=== PATIENT | female | born 1955 | race Caucasian/White ===

== ENCOUNTER 2019-08-29 10:07 | Outpatient (CLI) | payer OTHER ==
[~2019-08-29 10:07] MED LIST: [UNRECOGNIZED DRUG - OTHER]
== END 2019-08-29 10:14 | disposition home or self-care (01) ==
LOC: SONOGRAMA 10:07
DX: E03.8 Other specified hypothyroidism (principal); E04.2 Nontoxic multinodular goiter

== ENCOUNTER 2019-09-08 08:49 | Outpatient (CLI) | payer OTHER | END 2019-09-08 08:50 | disposition home or self-care (01) | LOC: TOM 08:49 | DX: E04.2 Nontoxic multinodular goiter (principal); R59.9 Enlarged lymph nodes, unspecified | CPT/HCPCS: 70491; Q9965 ==

== ENCOUNTER 2019-09-10 07:23 | Outpatient (CLI) | payer OTHER ==
[~2019-09-10] VITALS: Ht 162.6 cm; Wt 87.5 kg
[~2019-09-10 07:23] MED LIST changes: -CEFUROXIME500 MG PO; -FLONASE16 GM NASAL; -OMEPRAZOLE40 MG PO; -PEPCID40 MG PO
[2019-09-10] MEDS ORDERED: PEPCID40 MG PO (09:58)
[2019-09-10] MEDS ORDERED: OMEPRAZOLE40 MG PO (09:58)
[2019-09-10] MEDS ORDERED: CEFUROXIME500 MG PO (09:58)
[2019-09-10] MEDS ORDERED: FLONASE16 GM NASAL (09:59)
== END 2019-09-10 08:15 | disposition home or self-care (01) ==
LOC: OFIC 805 07:23
DX: J32.0 Chronic maxillary sinusitis (principal); J34.2 Deviated nasal septum; J31.0 Chronic rhinitis; E04.2 Nontoxic multinodular goiter; R22.1 Localized swelling, mass and lump, neck; J37.0 Chronic laryngitis; K21.9 Gastro-esophageal reflux disease without esophagitis

== ENCOUNTER → 2019-09-10 | Outpatient (CLI) | payer OTHER ==
[~2019-09-10] MED LIST changes: +CEFUROXIME500 MG PO; +FLONASE16 GM NASAL; +OMEPRAZOLE40 MG PO; +PEPCID40 MG PO
== END | disposition home or self-care (01) ==
LOC: MRI 11:05
DX: C82.80 Other types of follicular lymphoma, unspecified site (principal)
CPT/HCPCS: 70543; 72157; A9575

== ENCOUNTER 2019-09-11 07:41 | Outpatient (CLI) | payer OTHER ==
[~2019-09-11 07:41] MED LIST changes: +CEFUROXIME500 MG PO; +FLONASE16 GM NASAL; +OMEPRAZOLE40 MG PO; +PEPCID40 MG PO
== END 2019-09-11 07:44 | disposition home or self-care (01) ==
LOC: SONOGRAMA 07:41
DX: E04.1 Nontoxic single thyroid nodule (principal)

== ENCOUNTER 2019-09-25 10:02 | Outpatient (CLI) | payer OTHER | END 2019-09-25 15:00 | disposition home or self-care (01) | LOC: RX STUDY 10:02 | DX: J01.00 Acute maxillary sinusitis, unspecified (principal); R13.19 Other dysphagia ==

== ENCOUNTER 2019-10-01 09:56 | Outpatient (CLI) | payer OTHER ==
[~2019-10-01] VITALS: Ht 152.4 cm; Wt 86.2 kg
== END 2019-10-01 13:03 | disposition home or self-care (01) ==
LOC: OFIC 805 09:56
DX: J32.0 Chronic maxillary sinusitis (principal); J34.2 Deviated nasal septum; J31.0 Chronic rhinitis; E04.2 Nontoxic multinodular goiter; R22.1 Localized swelling, mass and lump, neck; R22.2 Localized swelling, mass and lump, trunk; J37.0 Chronic laryngitis; K21.9 Gastro-esophageal reflux disease without esophagitis; J34.3 Hypertrophy of nasal turbinates

== ENCOUNTER → 2019-11-03 | Outpatient (CLI) | payer OTHER | END | disposition home or self-care (01) | LOC: RAD 09:39 | DX: N30.00 Acute cystitis without hematuria (principal) ==

== ENCOUNTER 2019-11-06 08:44 | Outpatient (CLI) | payer OTHER | END 2019-11-06 14:36 | disposition home or self-care (01) | LOC: NUCLEAR 08:44 | DX: C81.78 Other Hodgkin lymphoma, lymph nodes of multiple sites (principal); C82.02 Follicular lymphoma grade I, intrathoracic lymph nodes | CPT/HCPCS: 78815; A9552 ==

== ENCOUNTER 2019-11-28 12:22 | Outpatient (CLI) | payer OTHER | END 2019-11-28 12:50 | disposition home or self-care (01) | LOC: NUCLEAR 12:22 | DX: C82.12 Follicular lymphoma grade II, intrathoracic lymph nodes (principal) | CPT/HCPCS: 78472; 78496; A9560 ==

== ENCOUNTER 2019-12-09 10:01 | Outpatient (CLI) | payer OTHER | END 2019-12-09 11:00 | disposition home or self-care (01) | LOC: MAMO-SONO 10:01 | DX: Z12.31 Encounter for screening mammogram for malignant neoplasm of breast (principal); N60.11 Diffuse cystic mastopathy of right breast; N60.12 Diffuse cystic mastopathy of left breast ==

== ENCOUNTER 2019-12-09 11:02 | Outpatient (CLI) | payer OTHER | END 2019-12-09 11:17 | disposition home or self-care (01) | LOC: NUCLEAR 11:02 | DX: M81.0 Age-related osteoporosis without current pathological fracture (principal) ==

== ENCOUNTER 2019-12-11 15:12 | Outpatient (CLI) | payer OTHER | END 2019-12-11 15:17 | disposition home or self-care (01) | LOC: MAMO-SONO 15:12 | DX: R92.8 Other abnormal and inconclusive findings on diagnostic imaging of breast (principal) ==

== ENCOUNTER 2020-01-23 11:57 | Outpatient (CLI) | payer OTHER | END 2020-01-23 15:32 | disposition home or self-care (01) | LOC: TOM 11:57 | DX: C82.12 Follicular lymphoma grade II, intrathoracic lymph nodes (principal) | CPT/HCPCS: 71270; Q9965 ==

== ENCOUNTER 2020-03-16 14:04 | Outpatient (CLI) | payer OTHER | END 2020-03-16 14:08 | disposition home or self-care (01) | LOC: LAB 14:04 | DX: N30.00 Acute cystitis without hematuria (principal) ==

== ENCOUNTER 2020-04-26 09:12 | Outpatient (CLI) | payer OTHER | END 2020-04-26 09:20 | disposition home or self-care (01) | LOC: NUCLEAR 09:12 | PROVIDERS: ATTEND Internal Medicine Hematology & Oncology | DX: C82.12 Follicular lymphoma grade II, intrathoracic lymph nodes (principal) | CPT/HCPCS: 78815; A9552 ==

== ENCOUNTER 2020-10-23 08:31 | Outpatient (CLI) | payer OTHER | END 2020-10-23 08:57 | disposition home or self-care (01) | LOC: LAB 08:31 | PROVIDERS: ATTEND Internal Medicine Hematology & Oncology | DX: C82.12 Follicular lymphoma grade II, intrathoracic lymph nodes (principal) ==

== ENCOUNTER 2020-10-25 08:17 | Outpatient (CLI) | payer OTHER | END 2020-10-25 08:50 | disposition home or self-care (01) | LOC: TOM 08:17 | PROVIDERS: ATTEND Internal Medicine Hematology & Oncology | DX: D35.01 Benign neoplasm of right adrenal gland (principal); Q51.818 Other congenital malformations of uterus; C82.12 Follicular lymphoma grade II, intrathoracic lymph nodes | CPT/HCPCS: 71260; 74177; Q9965 ==

== ENCOUNTER → 2020-11-08 11:01 | Outpatient (CLI) | payer OTHER | END | disposition home or self-care (01) | LOC: LAB 11:01 | PROVIDERS: ATTEND Student in an Organized Health Care Education/Training Program | DX: I10 Essential (primary) hypertension (principal); B96.1 Klebsiella pneumoniae [K. pneumoniae] as the cause of diseases classified elsewhere; E78.49 Other hyperlipidemia; E03.8 Other specified hypothyroidism; N30.00 Acute cystitis without hematuria; E83.51 Hypocalcemia; Z12.11 Encounter for screening for malignant neoplasm of colon; E06.3 Autoimmune thyroiditis; N95.8 Other specified menopausal and perimenopausal disorders; R97.8 Other abnormal tumor markers; Z11.3 Encounter for screening for infections with a predominantly sexual mode of transmission; A60.04 Herpesviral vulvovaginitis; R74.8 Abnormal levels of other serum enzymes; E28.2 Polycystic ovarian syndrome; E22.1 Hyperprolactinemia ==

== ENCOUNTER 2020-11-11 11:09 | Outpatient (CLI) | payer OTHER | END 2020-11-11 12:52 | disposition home or self-care (01) | LOC: SONOGRAMA 11:09 | PROVIDERS: ATTEND Specialist | DX: D25.2 Subserosal leiomyoma of uterus (principal) ==

== ENCOUNTER 2021-01-11 14:29 | Outpatient (CLI) | payer OTHER | END 2021-01-11 14:31 | disposition home or self-care (01) | LOC: LAB 14:29 | PROVIDERS: ATTEND Radiology Diagnostic Radiology | DX: N20.0 Calculus of kidney (principal) ==

== ENCOUNTER 2021-01-13 08:18 | Outpatient (CLI) | payer OTHER | END 2021-01-13 08:24 | disposition home or self-care (01) | LOC: TOM 08:18 | PROVIDERS: ATTEND Internal Medicine Hematology & Oncology | DX: G93.89 Other specified disorders of brain (principal); J32.8 Other chronic sinusitis; C82.12 Follicular lymphoma grade II, intrathoracic lymph nodes | CPT/HCPCS: 70450; 70492; Q9965 ==

== ENCOUNTER 2021-05-24 07:07 | Outpatient (CLI) | payer OTHER | END 2021-05-24 07:16 | disposition home or self-care (01) | LOC: TOM 07:07 | PROVIDERS: ATTEND Internal Medicine Hematology & Oncology | DX: C82.12 Follicular lymphoma grade II, intrathoracic lymph nodes (principal); Q51.818 Other congenital malformations of uterus | CPT/HCPCS: 71260; 74177; Q9965 ==

== ENCOUNTER → 2021-05-30 11:24 | Outpatient (CLI) | payer OTHER | END | disposition home or self-care (01) | LOC: MRI 11:24 | PROVIDERS: ATTEND Internal Medicine Hematology & Oncology | DX: C82.12 Follicular lymphoma grade II, intrathoracic lymph nodes (principal) | CPT/HCPCS: 72148 ==

== ENCOUNTER 2021-06-01 09:40 | Outpatient (CLI) | payer OTHER | END 2021-06-01 09:44 | disposition home or self-care (01) | LOC: NUCLEAR 09:40 | PROVIDERS: ATTEND Internal Medicine Hematology & Oncology | DX: C82.12 Follicular lymphoma grade II, intrathoracic lymph nodes (principal); I82.491 Acute embolism and thrombosis of other specified deep vein of right lower extremity ==

== ENCOUNTER 2021-06-08 08:00 | Outpatient (CLI) | payer OTHER | END 2021-06-08 08:30 | disposition home or self-care (01) | LOC: PPH VACUNA 08:00 | DX: Z23 Encounter for immunization (principal) ==

== ENCOUNTER → 2021-10-24 10:04 | Outpatient (CLI) | payer OTHER | END | disposition home or self-care (01) | LOC: LAB 10:04 | PROVIDERS: ATTEND Internal Medicine Hematology & Oncology | DX: N30.00 Acute cystitis without hematuria (principal); C82.12 Follicular lymphoma grade II, intrathoracic lymph nodes ==

== ENCOUNTER 2021-10-25 07:25 | Outpatient (CLI) | payer OTHER | END 2021-10-25 07:28 | disposition home or self-care (01) | LOC: TOM 07:25 | PROVIDERS: ATTEND Internal Medicine Hematology & Oncology | DX: C82.12 Follicular lymphoma grade II, intrathoracic lymph nodes (principal) | CPT/HCPCS: 71260; 74177; Q9965 ==

== ENCOUNTER 2021-12-06 14:27 | Outpatient (CLI) | payer OTHER | END 2021-12-06 15:05 | disposition home or self-care (01) | LOC: RAD 14:27 | PROVIDERS: ATTEND Physical Medicine & Rehabilitation Pain Medicine | DX: M54.17 Radiculopathy, lumbosacral region (principal); M53.88 Other specified dorsopathies, sacral and sacrococcygeal region; M25.559 Pain in unspecified hip; M72.2 Plantar fascial fibromatosis ==

== ENCOUNTER 2022-01-23 08:00 | Outpatient (CLI) | payer OTHER | END 2022-01-23 08:30 | disposition home or self-care (01) | LOC: PPH VACUNA 08:00 | PROVIDERS: ATTEND Emergency Medicine Pediatric Emergency Medicine | DX: Z23 Encounter for immunization (principal) ==

== ENCOUNTER 2022-02-15 11:10 | Outpatient (CLI) | payer OTHER | END 2022-02-15 11:23 | disposition home or self-care (01) | LOC: RAD 11:10 | PROVIDERS: ATTEND Internal Medicine | DX: R51.9 Headache, unspecified (principal); M25.562 Pain in left knee | CPT/HCPCS: 70551 ==

== ENCOUNTER 2022-02-16 07:30 | Outpatient (CLI) | payer OTHER | END 2022-02-16 07:43 | disposition home or self-care (01) | LOC: LAB 07:30 | PROVIDERS: ATTEND Internal Medicine | DX: C82.52 Diffuse follicle center lymphoma, intrathoracic lymph nodes (principal); I10 Essential (primary) hypertension; Z13.1 Encounter for screening for diabetes mellitus; Z13.220 Encounter for screening for lipoid disorders; Z13.29 Encounter for screening for other suspected endocrine disorder ==

== ENCOUNTER → 2022-04-11 | Outpatient (CLI) | payer OTHER | END | disposition home or self-care (01) | LOC: NUCLEAR 12:47 | PROVIDERS: ATTEND Specialist | DX: M81.0 Age-related osteoporosis without current pathological fracture (principal); Z88.1 Allergy status to other antibiotic agents ==

== ENCOUNTER 2022-04-25 07:12 | Outpatient (CLI) | payer OTHER | END 2022-04-25 07:13 | disposition home or self-care (01) | LOC: LAB 07:12 | DX: C82.12 Follicular lymphoma grade II, intrathoracic lymph nodes (principal) ==

== ENCOUNTER → 2022-04-25 | Outpatient (CLI) | payer OTHER | END | disposition home or self-care (01) | LOC: TOM 07:42 | PROVIDERS: ATTEND Internal Medicine Hematology & Oncology | DX: C82.12 Follicular lymphoma grade II, intrathoracic lymph nodes (principal) | CPT/HCPCS: 71260; 74177; Q9965 ==

== ENCOUNTER 2022-07-05 10:17 | Outpatient (CLI) | payer OTHER | END 2022-07-05 10:27 | disposition home or self-care (01) | LOC: PPH VACUNA 10:17 | PROVIDERS: ATTEND Emergency Medicine Pediatric Emergency Medicine | DX: Z23 Encounter for immunization (principal) ==

== ENCOUNTER 2022-10-23 07:13 | Outpatient (CLI) | payer OTHER | END 2022-10-23 07:14 | disposition home or self-care (01) | LOC: LAB 07:13 | PROVIDERS: ATTEND Internal Medicine | DX: I25.9 Chronic ischemic heart disease, unspecified (principal); C82.52 Diffuse follicle center lymphoma, intrathoracic lymph nodes; I10 Essential (primary) hypertension; D64.9 Anemia, unspecified; E78.9 Disorder of lipoprotein metabolism, unspecified ==

== ENCOUNTER 2022-10-24 07:14 | Outpatient (CLI) | payer OTHER | END 2022-10-24 07:17 | disposition home or self-care (01) | LOC: TOM 07:14 | PROVIDERS: ATTEND Internal Medicine Hematology & Oncology | DX: C82.12 Follicular lymphoma grade II, intrathoracic lymph nodes (principal) | CPT/HCPCS: 71260; 74177; Q9965 ==

== ENCOUNTER 2022-10-24 08:13 | Outpatient (CLI) | payer OTHER | END 2022-10-24 23:00 | disposition home or self-care (01) | LOC: LAB 08:13 | PROVIDERS: ATTEND Internal Medicine | DX: R73.09 Other abnormal glucose (principal) ==

== ENCOUNTER 2022-10-31 11:35 | Outpatient (CLI) | payer OTHER | END 2022-10-31 11:47 | disposition home or self-care (01) | LOC: RAD 11:35 | PROVIDERS: ATTEND Internal Medicine | DX: E04.1 Nontoxic single thyroid nodule (principal); R51.9 Headache, unspecified | CPT/HCPCS: 70551 ==

== ENCOUNTER 2022-11-27 08:28 | Outpatient (CLI) | payer OTHER | END 2022-11-27 08:30 | disposition home or self-care (01) | LOC: NUCLEAR 08:28 | PROVIDERS: ATTEND Internal Medicine | DX: I73.9 Peripheral vascular disease, unspecified (principal) ==

== ENCOUNTER 2022-12-20 08:31 | Outpatient (CLI) | payer OTHER | END 2022-12-20 08:37 | disposition home or self-care (01) | LOC: NUCLEAR 08:31 | PROVIDERS: ATTEND Psychiatry & Neurology Clinical Neurophysiology | DX: I82.439 Acute embolism and thrombosis of unspecified popliteal vein (principal); C85.90 Non-Hodgkin lymphoma, unspecified, unspecified site ==

== ENCOUNTER 2023-01-02 14:06 | Outpatient (CLI) | payer OTHER | END 2023-01-02 14:10 | disposition home or self-care (01) | LOC: LAB 14:06 | DX: C82.12 Follicular lymphoma grade II, intrathoracic lymph nodes (principal); D69.9 Hemorrhagic condition, unspecified ==

== ENCOUNTER → 2023-01-24 12:33 | Outpatient (CLI) | payer OTHER | END | disposition home or self-care (01) | LOC: LAB 12:33 | PROVIDERS: ATTEND Internal Medicine | DX: Z03.818 Encounter for observation for suspected exposure to other biological agents ruled out (principal) ==

== ENCOUNTER 2023-04-04 08:35 | Outpatient (CLI) | payer OTHER | END 2023-04-04 08:38 | disposition home or self-care (01) | LOC: LAB 08:35 | PROVIDERS: ATTEND Internal Medicine | DX: Z20.822 Contact with and (suspected) exposure to COVID-19 (principal); J11.1 Influenza due to unidentified influenza virus with other respiratory manifestations; N39.0 Urinary tract infection, site not specified ==

== ENCOUNTER 2023-04-27 06:56 | Outpatient (CLI) | payer OTHER | END 2023-04-27 06:57 | disposition home or self-care (01) | LOC: LAB 06:56 | PROVIDERS: ATTEND Internal Medicine | DX: C82.12 Follicular lymphoma grade II, intrathoracic lymph nodes (principal); K22.0 Achalasia of cardia; M35.9 Systemic involvement of connective tissue, unspecified ==

== ENCOUNTER 2023-05-01 07:15 | Outpatient (CLI) | payer OTHER | END 2023-05-01 14:26 | disposition home or self-care (01) | LOC: TOM 07:15 | PROVIDERS: ATTEND Internal Medicine Hematology & Oncology | DX: C82.12 Follicular lymphoma grade II, intrathoracic lymph nodes (principal) | CPT/HCPCS: 71260; 74177; Q9965 ==

== ENCOUNTER 2023-05-25 08:18 | Outpatient (CLI) | payer OTHER | END 2023-05-25 08:25 | disposition home or self-care (01) | LOC: PPH VACUNA 08:18 | PROVIDERS: ATTEND Emergency Medicine Pediatric Emergency Medicine | DX: Z23 Encounter for immunization (principal) ==

== ENCOUNTER 2023-10-02 12:48 | Outpatient (CLI) | payer OTHER | END 2023-10-02 12:55 | disposition home or self-care (01) | LOC: RAD 12:48 | PROVIDERS: ATTEND Internal Medicine | DX: S40.022A Contusion of left upper arm, initial encounter (principal) ==

== ENCOUNTER 2023-10-02 13:30 | Outpatient (CLI) | payer OTHER ==
[2023-10-02 14:41] LABS: HEMATOCRIT 39.3 % (36.0-45.00); HEMOGLOBIN 13.5 g/dL (12.0-15.00); MEAN CELL VOLUME 90.6 fL (80.00-100.00); MEAN CORPUSCULAR HEMOGLOBIN 31.2 pg (27.00-32.0); MEAN CORPUSCULAR HGB CONC 34.5 g/dl (32.0-36.0); PLATELET COUNT 205 K/uL (150-450); RED BLOOD COUNT 4.34 M/uL (4.00-6.00); RED CELL DISTRIBUTION WIDTH 14.1 % (11.5-14.5)
[2023-10-02 14:50] LABS: ERYTHROCYTE SEDIMENTATION RATE 8 mm/hr
[2023-10-02 15:13] LABS: ALBUMIN 3.8 gm/dL (3.4-5.0); BILIRUBIN TOTAL 0.39 mg/dL (0.3-1.2); CHOL HDL RATIO 3.7 (0-5.0); CREATININE SERUM 0.74 mg/dL (0.55-1.02); GFR 77.81; POTASSIUM 4.34 mEq/L (3.5-5.1); TOTAL PROTEIN 6.8 gm/dL (6.4-8.2)
[2023-10-02 15:14] LABS: C-REACTIVE PROTEIN 0.88 MG/DL (0.00-0.29)
== END 2023-10-02 13:34 | disposition home or self-care (01) ==
LOC: LAB 13:30
PROVIDERS: ATTEND Internal Medicine
DX: I25.9 Chronic ischemic heart disease, unspecified (principal); C82.52 Diffuse follicle center lymphoma, intrathoracic lymph nodes; I10 Essential (primary) hypertension; E78.9 Disorder of lipoprotein metabolism, unspecified; E55.9 Vitamin D deficiency, unspecified

== ENCOUNTER 2023-10-30 15:10 | Outpatient (CLI) | payer OTHER ==
[2023-10-30 15:51] LABS: HEMATOCRIT 41.1 % (36.0-45.00); MEAN CELL VOLUME 91.6 fL (80.00-100.00); MEAN CORPUSCULAR HEMOGLOBIN 31.1 pg (27.00-32.0); MEAN CORPUSCULAR HGB CONC 33.9 g/dl (32.0-36.0); PLATELET COUNT 200 K/uL (150-450); RED BLOOD COUNT 4.49 M/uL (4.00-6.00); RED CELL DISTRIBUTION WIDTH 14.4 % (11.5-14.5)
[2023-10-30 16:17] LABS: ALBUMIN 4.1 gm/dL (3.4-5.0); BILIRUBIN TOTAL 0.7 mg/dL (0.3-1.2); CALCIUM 9.6 mg/dL (8.5-10.1); CREATININE SERUM 0.87 mg/dL (0.55-1.02); GFR 64.56; GLOBULINA 2.9 G/DL (2.4-3.5); POTASSIUM 4.49 mEq/L (3.5-5.1)
== END 2023-10-30 15:16 | disposition home or self-care (01) ==
LOC: LAB 15:10
DX: C82.12 Follicular lymphoma grade II, intrathoracic lymph nodes (principal)

== ENCOUNTER 2023-11-01 07:07 | Outpatient (CLI) | payer OTHER | END 2023-11-01 07:09 | disposition home or self-care (01) | LOC: TOM 07:07 | DX: C82.12 Follicular lymphoma grade II, intrathoracic lymph nodes (principal); Z88.1 Allergy status to other antibiotic agents | CPT/HCPCS: 71260; 74177; Q9965 ==

== ENCOUNTER 2023-11-22 09:07 | Outpatient (CLI) | payer OTHER | END 2023-11-22 09:19 | disposition home or self-care (01) | LOC: MRI 09:07 | PROVIDERS: ATTEND Internal Medicine | DX: R51.9 Headache, unspecified (principal); C82.52 Diffuse follicle center lymphoma, intrathoracic lymph nodes | CPT/HCPCS: 70553; 73221; Q9965; 70552 ==

== ENCOUNTER → 2023-11-23 08:52 | Outpatient (CLI) | payer OTHER | END | disposition home or self-care (01) | LOC: SONOGRAMA 08:52 | PROVIDERS: ATTEND Specialist | DX: N95.0 Postmenopausal bleeding (principal) ==

== ENCOUNTER 2024-01-14 11:25 | Outpatient (CLI) | payer OTHER ==
[2024-01-14 14:26] LABS: PH,URINE 5.5 (5.0-8.0); URINE APPEARANCE Error; URINE BILIRRUBIN Negative (NEGATIVE); URINE BLOOD Small; URINE COLOR Yellow; URINE GLUCOSE Negative (NEGATIVE); URINE LEUKOCYTE Moderate; URINE NITRATE Negative; URINE PROTEIN Negative (NEGATIVE); URINE UROBILINOGEN 0.2 E.U./dl
[2024-01-14 14:30] LABS: URINE BACTERIA 6445.6 uL (0.0-1933); URINE EPITHELIAL CELLS 2.3 uL (0.0-38.8); URINE RBC 10.7 uL (0.0-20.8); URINE WBC 1084.5 uL (0.0-23.2)
== END 2024-01-14 12:12 | disposition home or self-care (01) ==
LOC: LAB 11:25
PROVIDERS: ATTEND Specialist
DX: E03.8 Other specified hypothyroidism (principal); N95.1 Menopausal and female climacteric states

== ENCOUNTER 2024-01-30 11:58 | Outpatient (CLI) | payer OTHER ==
[2024-01-30 14:23] LABS: HEMATOCRIT 40.1 % (36.0-45.00); HEMOGLOBIN 13.7 g/dL (12.0-15.00); MEAN CELL VOLUME 92.9 fL (80.00-100.00); MEAN CORPUSCULAR HEMOGLOBIN 31.8 pg (27.00-32.0); MEAN CORPUSCULAR HGB CONC 34.2 g/dl (32.0-36.0); PLATELET COUNT 197 K/uL (150-450); RED BLOOD COUNT 4.31 M/uL (4.00-6.00); RED CELL DISTRIBUTION WIDTH 14.3 % (11.5-14.5)
[2024-01-30 14:34] LABS: ERYTHROCYTE SEDIMENTATION RATE 7 mm/hr
[2024-01-30 15:26] LABS: ALBUMIN 3.8 gm/dL (3.4-5.0); BILIRUBIN TOTAL 0.71 mg/dL (0.3-1.2); CALCIUM 9.2 mg/dL (8.5-10.1); CREATININE SERUM 0.85 mg/dL (0.55-1.02); FREE TRIODOTIRONINE 2.5 pg/ml (2.18-3.98); GFR 66.12; POTASSIUM 4.35 mEq/L (3.5-5.1); T4 TOTAL 8.22 UG/DL (4.8-13.9); TOTAL PROTEIN 6.8 gm/dL (6.4-8.2); TSH 1.45 uIU/mL (0.358-3.74)
[2024-01-30 15:27] LABS: URINE APPEARANCE Clear; URINE BILIRRUBIN Negative (NEGATIVE); URINE BLOOD Negative; URINE COLOR Yellow; URINE GLUCOSE Negative (NEGATIVE); URINE LEUKOCYTE Negative; URINE NITRATE Negative; URINE PROTEIN Negative (NEGATIVE); URINE UROBILINOGEN 0.2 E.U./dl
[2024-01-30 15:31] LABS: URINE BACTERIA 20.1 uL (0.0-1933); URINE EPITHELIAL CELLS 16.5 uL (0.0-38.8); URINE RBC 4.8 uL (0.0-20.8); URINE WBC 19.9 uL (0.0-23.2)
[2024-01-30 15:31] LABS: C-REACTIVE PROTEIN 0.63 MG/DL (0.00-0.29)
== END 2024-01-30 11:59 | disposition home or self-care (01) ==
LOC: LAB 11:58
PROVIDERS: ATTEND Internal Medicine
DX: C82.52 Diffuse follicle center lymphoma, intrathoracic lymph nodes (principal); I25.9 Chronic ischemic heart disease, unspecified; E55.9 Vitamin D deficiency, unspecified; I10 Essential (primary) hypertension; R73.9 Hyperglycemia, unspecified; K76.0 Fatty (change of) liver, not elsewhere classified; Z12.10 Encounter for screening for malignant neoplasm of intestinal tract, unspecified

== ENCOUNTER → 2024-01-31 09:54 | Outpatient (CLI) | payer OTHER ==
[2024-01-31 10:51] LABS: ob NEGATIVE (NEGATIVE)
== END | disposition home or self-care (01) ==
LOC: LAB 09:54
PROVIDERS: ATTEND Internal Medicine
DX: C82.52 Diffuse follicle center lymphoma, intrathoracic lymph nodes (principal); I25.9 Chronic ischemic heart disease, unspecified; E55.9 Vitamin D deficiency, unspecified; I10 Essential (primary) hypertension; R73.9 Hyperglycemia, unspecified; K76.0 Fatty (change of) liver, not elsewhere classified; Z12.10 Encounter for screening for malignant neoplasm of intestinal tract, unspecified; E03.9 Hypothyroidism, unspecified

== ENCOUNTER 2024-02-07 11:37 | Outpatient (CLI) | payer OTHER ==
[2024-02-07 13:52] LABS: INR 1.02; PARTIAL THROMBOPLASTIN TIME 28.6 SECONDS (22.0-34.0); PROTHROMBIN TIME 10.7 SECONDS (9.0-11.5)
== END 2024-02-07 11:38 | disposition home or self-care (01) ==
LOC: RAD 11:37
PROVIDERS: ATTEND Internal Medicine
DX: D65 Disseminated intravascular coagulation [defibrination syndrome] (principal); Z01.818 Encounter for other preprocedural examination; I10 Essential (primary) hypertension; Z13.6 Encounter for screening for cardiovascular disorders; N95.1 Menopausal and female climacteric states

== ENCOUNTER → 2024-04-25 06:28 | Outpatient (CLI) | payer OTHER ==
[~2024-04-25 06:28] MED LIST changes: +CHOLECALCIFEROL; +DYMISTA NASAL S23 GM; +ZESTRIL10 M1
[2024-04-25 07:49] LABS: HEMOGLOBIN 13.2 g/dL (12.0-15.00); MEAN CELL VOLUME 93.1 fL (80.00-100.00); MEAN CORPUSCULAR HEMOGLOBIN 31.5 pg (27.00-32.0); MEAN CORPUSCULAR HGB CONC 33.8 g/dl (32.0-36.0); PLATELET COUNT 209 K/uL (150-450); RED BLOOD COUNT 4.19 M/uL (4.00-6.00); RED CELL DISTRIBUTION WIDTH 13.9 % (11.5-14.5)
[2024-04-25 08:03] LABS: ERYTHROCYTE SEDIMENTATION RATE 7 mm/hr
[2024-04-25 08:28] LABS: ALBUMIN 3.6 gm/dL (3.4-5.0); BILIRUBIN TOTAL 0.25 mg/dL (0.3-1.2); CALCIUM 9.6 mg/dL (8.5-10.1); CHOL HDL RATIO 3.9 (0-5.0); CREATININE SERUM 0.73 mg/dL (0.55-1.02); FREE TRIODOTIRONINE 2.28 pg/ml (2.18-3.98); GFR 78.81; GLOBULINA 2.9 G/DL (2.4-3.5); POTASSIUM 5.02 mEq/L (3.5-5.1); T4 TOTAL 8.38 UG/DL (4.8-13.9); TOTAL PROTEIN 6.5 gm/dL (6.4-8.2); TSH 2.2 uIU/mL (0.358-3.74)
[2024-04-25 08:29] LABS: C-REACTIVE PROTEIN 0.68 MG/DL (0.00-0.29)
[2024-04-25 12:39] LABS: PH,URINE 7.5 (5.0-8.0); URINE APPEARANCE Clear; URINE BILIRRUBIN Negative (NEGATIVE); URINE BLOOD Negative; URINE COLOR Yellow; URINE GLUCOSE Negative (NEGATIVE); URINE LEUKOCYTE Negative; URINE NITRATE Negative; URINE PROTEIN Negative (NEGATIVE); URINE UROBILINOGEN 0.2 E.U./dl
[2024-04-25 12:40] LABS: URINE BACTERIA 17.6 uL (0.0-1933); URINE RBC 3.3 uL (0.0-20.8); URINE WBC 3.3 uL (0.0-23.2)
[2024-04-25 12:52] LABS: ob NEGATIVE (NEGATIVE)
== END | disposition home or self-care (01) ==
LOC: LAB 06:28
PROVIDERS: ATTEND Internal Medicine Hematology & Oncology
DX: C82.52 Diffuse follicle center lymphoma, intrathoracic lymph nodes (principal); C82.12 Follicular lymphoma grade II, intrathoracic lymph nodes; I25.9 Chronic ischemic heart disease, unspecified; E55.9 Vitamin D deficiency, unspecified; I10 Essential (primary) hypertension; R73.9 Hyperglycemia, unspecified; K76.0 Fatty (change of) liver, not elsewhere classified; Z12.10 Encounter for screening for malignant neoplasm of intestinal tract, unspecified; E03.9 Hypothyroidism, unspecified

== ENCOUNTER 2024-04-28 07:05 | Outpatient (CLI) | payer OTHER | END 2024-04-28 07:13 | disposition home or self-care (01) | LOC: TOM 07:05 | PROVIDERS: ATTEND Internal Medicine Hematology & Oncology | DX: C82.12 Follicular lymphoma grade II, intrathoracic lymph nodes (principal) | CPT/HCPCS: 71260; 74177; Q9965 ==

== ENCOUNTER 2024-05-03 23:07 | Emergency (ER) | payer OTHER ==
[~2024-05-03] VITALS: Ht 162.6 cm; Wt 87.1 kg
[2024-05-04] MEDS ORDERED: FAMOtidine 10 MG/ML (4ML VIAL) IV PUSH STA (00:45)
[2024-05-04] MEDS ORDERED: METOCLOPRAMIDE HCL 5 MG/ML VIAL IM STA (00:45)
[2024-05-04 01:18] LABS: HEMATOCRIT 40.5 % (36.0-45.00); MEAN CELL VOLUME 91.3 fL (80.00-100.00); MEAN CORPUSCULAR HEMOGLOBIN 31.6 pg (27.00-32.0); MEAN CORPUSCULAR HGB CONC 34.6 g/dl (32.0-36.0); PLATELET COUNT 194 K/uL (150-450); RED BLOOD COUNT 4.44 M/uL (4.00-6.00)
== END 2024-05-04 03:06 | disposition home or self-care (01) ==
LOC: ER 23:08
DX: U07.1 COVID-19 (principal); R11.10 Vomiting, unspecified; K29.70 Gastritis, unspecified, without bleeding; Z88.8 Allergy status to other drugs, medicaments and biological substances
CPT/HCPCS: 36415; 96365; 96372; 99282; J0696; J3490

== ENCOUNTER → 2024-05-10 08:24 | Outpatient (CLI) | payer OTHER ==
[2024-05-10 09:05] LABS: HEMATOCRIT 40.2 % (36.0-45.00); HEMOGLOBIN 13.9 g/dL (12.0-15.00); MEAN CELL VOLUME 92.3 fL (80.00-100.00); MEAN CORPUSCULAR HGB CONC 34.7 g/dl (32.0-36.0); PLATELET COUNT 214 K/uL (150-450); RED BLOOD COUNT 4.35 M/uL (4.00-6.00); RED CELL DISTRIBUTION WIDTH 13.5 % (11.5-14.5)
== END | disposition home or self-care (01) ==
LOC: LAB 08:24
PROVIDERS: ATTEND Internal Medicine
DX: U07.1 COVID-19 (principal)

== ENCOUNTER → 2024-05-14 12:23 | Outpatient (CLI) | payer OTHER ==
[2024-05-14 13:45] LABS: HEMATOCRIT 39.2 % (36.0-45.00); HEMOGLOBIN 13.6 g/dL (12.0-15.00); MEAN CELL VOLUME 92.5 fL (80.00-100.00); MEAN CORPUSCULAR HEMOGLOBIN 32.2 pg (27.00-32.0); MEAN CORPUSCULAR HGB CONC 34.8 g/dl (32.0-36.0); PLATELET COUNT 238 K/uL (150-450); RED BLOOD COUNT 4.24 M/uL (4.00-6.00); RED CELL DISTRIBUTION WIDTH 13.5 % (11.5-14.5)
[2024-05-14 14:47] LABS: MYCOPLASMA PNEUMONIAE IGM NON REACTIVE (NO REACTIVE)
== END | disposition home or self-care (01) ==
LOC: LAB 12:23
PROVIDERS: ATTEND Internal Medicine
DX: J11.1 Influenza due to unidentified influenza virus with other respiratory manifestations (principal); R50.9 Fever, unspecified; Z20.822 Contact with and (suspected) exposure to COVID-19; U07.1 COVID-19

== ENCOUNTER 2024-05-24 09:11 | Outpatient (CLI) | payer OTHER ==
[2024-05-24 11:06] LABS: MYCOPLASMA PNEUMONIAE IGM NON REACTIVE (NO REACTIVE)
== END 2024-05-24 09:14 | disposition home or self-care (01) ==
LOC: LAB 09:11
PROVIDERS: ATTEND Internal Medicine
DX: J10.1 Influenza due to other identified influenza virus with other respiratory manifestations (principal); A43.9 Nocardiosis, unspecified; Z20.828 Contact with and (suspected) exposure to other viral communicable diseases

== ENCOUNTER 2024-06-09 13:37 | Outpatient (CLI) | payer OTHER | END 2024-06-09 13:47 | disposition home or self-care (01) | LOC: LAB 13:37 | PROVIDERS: ATTEND Internal Medicine | DX: Z20.822 Contact with and (suspected) exposure to COVID-19 (principal) ==

== ENCOUNTER 2024-06-12 09:32 | Outpatient (CLI) | payer OTHER | END 2024-06-12 09:41 | disposition home or self-care (01) | LOC: LAB 09:32 | PROVIDERS: ATTEND Internal Medicine | DX: J06.9 Acute upper respiratory infection, unspecified (principal) ==

== ENCOUNTER 2024-10-14 07:07 | Outpatient (CLI) | payer OTHER ==
[2024-10-14 07:53] LABS: HEMATOCRIT 39.3 % (36.0-45.00); HEMOGLOBIN 13.5 g/dL (12.0-15.00); MEAN CELL VOLUME 90.5 fL (80.00-100.00); MEAN CORPUSCULAR HGB CONC 34.2 g/dl (32.0-36.0); PLATELET COUNT 193 K/uL (150-450); RED BLOOD COUNT 4.35 M/uL (4.00-6.00); RED CELL DISTRIBUTION WIDTH 14.6 % (11.5-14.5)
[2024-10-14 08:56] LABS: ALBUMIN 3.6 gm/dL (3.4-5.0); BILIRUBIN TOTAL 0.66 mg/dL (0.3-1.2); CREATININE SERUM 0.83 mg/dL (0.55-1.02); GFR 67.96; POTASSIUM 4.6 mEq/L (3.5-5.1); TOTAL PROTEIN 6.6 gm/dL (6.4-8.2)
== END 2024-10-14 07:27 | disposition home or self-care (01) ==
LOC: LAB 07:07
DX: C82.12 Follicular lymphoma grade II, intrathoracic lymph nodes (principal)

== ENCOUNTER 2024-10-24 07:14 | Outpatient (CLI) | payer OTHER | END 2024-10-24 07:25 | disposition home or self-care (01) | LOC: TOM 07:14 | DX: C82.12 Follicular lymphoma grade II, intrathoracic lymph nodes (principal) | CPT/HCPCS: 71260; 74177; Q9965 ==

== ENCOUNTER 2024-11-03 08:43 | Outpatient (CLI) | payer OTHER | END 2024-11-03 08:57 | disposition home or self-care (01) | LOC: TOM 08:43 | PROVIDERS: ATTEND Internal Medicine Hematology & Oncology | DX: C82.12 Follicular lymphoma grade II, intrathoracic lymph nodes (principal) | CPT/HCPCS: 70491; Q9965 ==

== ENCOUNTER 2024-11-11 13:43 | Outpatient (CLI) | payer OTHER | END 2024-11-11 13:50 | disposition home or self-care (01) | LOC: SONOGRAMA 13:43 | PROVIDERS: ATTEND Internal Medicine | DX: E04.1 Nontoxic single thyroid nodule (principal) ==

== ENCOUNTER 2025-01-01 07:18 | Outpatient (CLI) | payer OTHER | END 2025-01-01 07:24 | disposition home or self-care (01) | LOC: SONOGRAMA 07:18 | PROVIDERS: ATTEND Internal Medicine | DX: N39.0 Urinary tract infection, site not specified (principal) ==

== ENCOUNTER 2025-01-21 10:03 | Outpatient (CLI) | payer OTHER ==
[2025-01-21 10:43] LABS: HEMATOCRIT 39.7 % (36.0-45.00); HEMOGLOBIN 13.4 g/dL (12.0-15.00); MEAN CELL VOLUME 91.2 fL (80.00-100.00); MEAN CORPUSCULAR HEMOGLOBIN 30.9 pg (27.00-32.0); MEAN CORPUSCULAR HGB CONC 33.9 g/dl (32.0-36.0); PLATELET COUNT 205 K/uL (150-450); RED BLOOD COUNT 4.35 M/uL (4.00-6.00); RED CELL DISTRIBUTION WIDTH 14.2 % (11.5-14.5)
[2025-01-21 10:55] LABS: ERYTHROCYTE SEDIMENTATION RATE 12 mm/hr
[2025-01-21 12:08] LABS: FOLIC ACID > 20.00 ng/ml (4.78-20); VITAMIN D3 25 HYDROXY 54.92 ng/ml (30-120)
[2025-01-21 12:27] LABS: ALBUMIN 3.6 gm/dL (3.4-5.0); BILIRUBIN TOTAL 0.84 mg/dL (0.3-1.2); CALCIUM 8.9 mg/dL (8.5-10.1); CHOL HDL RATIO 3.7 (0-5.0); CREATININE SERUM 0.87 mg/dL (0.55-1.02); FREE TRIODOTIRONINE 2.39 pg/ml (2.18-3.98); GFR 64.18; GLOBULINA 2.9 G/DL (2.4-3.5); POTASSIUM 4.32 mEq/L (3.5-5.1); T4 TOTAL 8.84 UG/DL (4.8-13.9); TOTAL PROTEIN 6.5 gm/dL (6.4-8.2); TSH 2.02 uIU/mL (0.358-3.74)
[2025-01-21 12:28] LABS: C-REACTIVE PROTEIN 0.72 MG/DL (0.00-0.29)
[2025-01-21 14:59] LABS: URINE APPEARANCE Clear; URINE BILIRRUBIN Negative (NEGATIVE); URINE BLOOD Negative; URINE COLOR Yellow; URINE GLUCOSE Negative (NEGATIVE); URINE KETONE Negative (NEGATIVE); URINE LEUKOCYTE Trace; URINE NITRATE Negative; URINE PROTEIN Negative (NEGATIVE); URINE UROBILINOGEN 0.2 E.U./dl
[2025-01-21 15:02] LABS: URINE BACTERIA 73.4 uL (0.0-1933); URINE RBC 15.9 uL (0.0-20.8); URINE WBC 54.4 uL (0.0-23.2)
[2025-01-21 15:05] LABS: URINE CAST 0.44 uL (0.0-1.40)
[2025-01-22 09:06] LABS: FOLLICLE STIMULATING HORMONE 55.1 mIU/mL (25.8-134.8); LEUTEINIZING HORMONE 40.6 mIU/mL (7.7-58.5); PROGESTERONA 0.1 ng/mL (.)
== END 2025-01-21 10:04 | disposition home or self-care (01) ==
LOC: LAB 10:03
PROVIDERS: ATTEND Internal Medicine
DX: D64.9 Anemia, unspecified (principal); N95.2 Postmenopausal atrophic vaginitis; I10 Essential (primary) hypertension; E03.9 Hypothyroidism, unspecified; Z12.10 Encounter for screening for malignant neoplasm of intestinal tract, unspecified; K76.0 Fatty (change of) liver, not elsewhere classified; R73.9 Hyperglycemia, unspecified; I25.9 Chronic ischemic heart disease, unspecified; E55.9 Vitamin D deficiency, unspecified; C82.52 Diffuse follicle center lymphoma, intrathoracic lymph nodes

== ENCOUNTER → 2025-01-22 12:24 | Outpatient (CLI) | payer OTHER ==
[2025-01-22 13:52] LABS: ob NEGATIVE (NEGATIVE)
== END | disposition home or self-care (01) ==
LOC: LAB 12:24
PROVIDERS: ATTEND Internal Medicine
DX: E03.9 Hypothyroidism, unspecified (principal); I10 Essential (primary) hypertension; Z12.10 Encounter for screening for malignant neoplasm of intestinal tract, unspecified; K76.0 Fatty (change of) liver, not elsewhere classified; R73.9 Hyperglycemia, unspecified; I25.9 Chronic ischemic heart disease, unspecified; E55.9 Vitamin D deficiency, unspecified; C82.52 Diffuse follicle center lymphoma, intrathoracic lymph nodes; D64.9 Anemia, unspecified

== ENCOUNTER 2025-02-04 08:36 | Outpatient (CLI) | payer OTHER | END 2025-02-04 08:38 | disposition home or self-care (01) | LOC: SONOGRAMA 08:36 | DX: N39.0 Urinary tract infection, site not specified (principal) ==

== ENCOUNTER → 2025-03-02 09:43 | Outpatient (CLI) | payer OTHER ==
[2025-03-02 11:03] LABS: URINE APPEARANCE Cloudy; URINE BILIRRUBIN Negative (NEGATIVE); URINE BLOOD Trace; URINE COLOR Other; URINE GLUCOSE Negative (NEGATIVE); URINE KETONE Negative (NEGATIVE); URINE LEUKOCYTE Large; URINE NITRATE Error; URINE PROTEIN Negative (NEGATIVE); URINE UROBILINOGEN 0.2 E.U./dl
[2025-03-02 11:08] LABS: URINE BACTERIA 5092.6 uL (0.0-1933); URINE CAST 1.91 uL (0.0-1.40); URINE EPITHELIAL CELLS 2.5 uL (0.0-38.8); URINE RBC 16.7 uL (0.0-20.8); URINE WBC 2076.3 uL (0.0-23.2)
[2025-03-02 11:21] LABS: BASO % 0.7 % (0.1-1.2); EOS % 1.2 % (0.7-7.0); HEMATOCRIT 37.3 % (34.1-44.9); HEMOGLOBIN 12.7 g/dL (11.2-15.7); LYMPH # 1.38 (1.18-3.74); LYMPH % 17.2 % (19.3-53.1); MEAN CORPUSCULAR HEMOGLOBIN 30.3 pg (25.6-32.2); MONO # 0.51 (0.24-0.82); MONO % 6.3 % (4.7-12.5); NEUT # 5.96 (1.56-6.13); NEUT % 74.2 % (34.0-71.1); PLATELET COUNT 189 K/uL (163-369); RED BLOOD COUNT 4.19 M/uL (3.93-5.22); RED CELL DISTRIBUTION WIDTH 13.4 % (11.6-14.4)
== END | disposition home or self-care (01) ==
LOC: LAB 09:43
PROVIDERS: ATTEND Internal Medicine
DX: N39.0 Urinary tract infection, site not specified (principal); R50.9 Fever, unspecified

== ENCOUNTER 2025-05-01 06:08 | Outpatient (CLI) | payer OTHER ==
[2025-05-01 07:51] LABS: BASO % 1.0 % (0.1-1.2); EOS # 0.14 (0.04-0.54); EOS % 1.6 % (0.7-7.0); LYMPH # 1.46 (1.18-3.74); LYMPH % 16.2 % (19.3-53.1); MEAN PLATELET VOLUME 11.30 fl (9.4-12.4); MONO # 0.46 (0.24-0.82); MONO % 5.1 % (4.7-12.5); NEUT # 6.78 (1.56-6.13); NEUT % 75.4 % (34.0-71.1); RED CELL DISTRIBUTION WIDTH 13.6 % (11.6-14.4)
[2025-05-01 08:05] LABS: URINE APPEARANCE Cloudy; URINE BILIRRUBIN Negative (NEGATIVE); URINE BLOOD Small; URINE COLOR Yellow; URINE GLUCOSE Negative (NEGATIVE); URINE KETONE Negative (NEGATIVE); URINE LEUKOCYTE Large; URINE NITRATE Positive; URINE PROTEIN Negative (NEGATIVE); URINE UROBILINOGEN 0.2 E.U./dl
[2025-05-01 08:06] LABS: URINE EPITHELIAL CELLS 13.5 uL (0.0-38.8); URINE RBC 4.1 uL (0.0-20.8); URINE WBC 3356.0 uL (0.0-23.2)
[2025-05-01 08:08] LABS: URINE BACTERIA > 9821.5 uL (0.0-1933); URINE CAST 0.87 uL (0.0-1.40)
[2025-05-01 08:23] LABS: ALT/SGPT 32.0 U/L (12-78); AST/SGOT 16.0 U/L (15-37); BILIRUBIN TOTAL 0.62 mg/dL (0.3-1.2); BUN CREA RATIO 30.0 (7.0-25.0); CREATININE SERUM 0.77 mg/dL (0.55-1.02); GFR 73.9; GLOBULINA 3.0 G/DL (2.4-3.5); GLUCOSE FASTING 106.0 mg/dL (65-100); LDH 146.0 U/L (84-246); OSMOLALITY SERUM 285.0 MOSM/KG (275-295)
== END 2025-05-01 06:12 | disposition home or self-care (01) ==
LOC: LAB 06:08
PROVIDERS: ATTEND Internal Medicine Hematology & Oncology
DX: C82.12 Follicular lymphoma grade II, intrathoracic lymph nodes (principal); N39.0 Urinary tract infection, site not specified

== ENCOUNTER 2025-05-05 08:49 | Outpatient (CLI) | payer OTHER | END 2025-05-05 08:52 | disposition home or self-care (01) | LOC: TOM 08:49 | DX: C82.12 Follicular lymphoma grade II, intrathoracic lymph nodes (principal) | CPT/HCPCS: 71260; 74177; Q9965 ==

== ENCOUNTER 2025-05-16 08:08 | Outpatient (CLI) | payer OTHER ==
[2025-05-16 09:41] LABS: BASO % 0.9 % (0.1-1.2); EOS # 0.12 (0.04-0.54); EOS % 1.4 % (0.7-7.0); LYMPH # 1.62 (1.18-3.74); LYMPH % 18.8 % (19.3-53.1); MEAN PLATELET VOLUME 11.60 fl (9.4-12.4); MONO # 0.52 (0.24-0.82); MONO % 6.0 % (4.7-12.5); NEUT # 6.26 (1.56-6.13); NEUT % 72.4 % (34.0-71.1); RED CELL DISTRIBUTION WIDTH 13.6 % (11.6-14.4)
[2025-05-16 10:44] LABS: FREE TRIODOTIRONINE 2.18 pg/ml (2.18-3.98); T4 FREE 0.9 NG/ML (0.76-1.46); TSH 3.11 uIU/mL (0.358-3.74)
[2025-05-16 11:30] LABS: URINE APPEARANCE Clear; URINE BILIRRUBIN Negative (NEGATIVE); URINE BLOOD Negative; URINE COLOR Yellow; URINE GLUCOSE Negative (NEGATIVE); URINE KETONE Negative (NEGATIVE); URINE LEUKOCYTE Negative; URINE NITRATE Negative; URINE PROTEIN Negative (NEGATIVE); URINE UROBILINOGEN 0.2 E.U./dl
[2025-05-16 11:31] LABS: URINE BACTERIA 7.1 uL (0.0-1933); URINE EPITHELIAL CELLS 8.3 uL (0.0-38.8); URINE RBC 4.9 uL (0.0-20.8); URINE WBC 7.2 uL (0.0-23.2)
[2025-05-16 11:33] LABS: URINE CAST 0.43 uL (0.0-1.40)
== END 2025-05-16 08:12 | disposition home or self-care (01) ==
LOC: LAB 08:08
PROVIDERS: ATTEND Internal Medicine
DX: E04.1 Nontoxic single thyroid nodule (principal); R87.610 Atypical squamous cells of undetermined significance on cytologic smear of cervix (ASC-US); N39.0 Urinary tract infection, site not specified

== ENCOUNTER 2025-08-04 06:51 | Outpatient (CLI) | payer OTHER ==
[2025-08-04 08:07] LABS: BASO % 0.7 % (0.1-1.2); EOS # 0.12 (0.04-0.54); EOS % 1.5 % (0.7-7.0); LYMPH # 1.00 (1.18-3.74); LYMPH % 12.2 % (19.3-53.1); MEAN PLATELET VOLUME 10.90 fl (9.4-12.4); MONO # 0.45 (0.24-0.82); MONO % 5.5 % (4.7-12.5); NEUT # 6.56 (1.56-6.13); NEUT % 79.7 % (34.0-71.1); RED CELL DISTRIBUTION WIDTH 13.4 % (11.6-14.4)
[2025-08-04 08:39] LABS: ERYTHROCYTE SEDIMENTATION RATE 6 mm/hr (0-30)
[2025-08-04 08:41] LABS: ALT/SGPT 36.0 U/L (12-78); AST/SGOT 18.0 U/L (15-37); BILIRUBIN TOTAL 0.37 mg/dL (0.3-1.2); BUN CREA RATIO 27.0 (7.0-25.0); CHOL HDL RATIO 3.6 (0-5.0); CREATININE SERUM 0.77 mg/dL (0.55-1.02); GFR 73.9; GLOBULINA 2.3 G/DL (2.4-3.5); GLUCOSE FASTING 123.0 mg/dL (65-100); HDL 57.0 mg/dl (40-60); LDL 134.0 mg/dl (0-130); OSMOLALITY SERUM 287.0 MOSM/KG (275-295); T4 TOTAL 7.2 UG/DL (4.8-13.9); TSH 2.37 uIU/mL (0.358-3.74); VLDL 14.0 (0-39)
[2025-08-04 11:39] LABS: FOLIC ACID 12.03 ng/ml (4.78-20); VITAMIN D3 25 HYDROXY 30.82 ng/ml (30-120)
[2025-08-04 13:02] LABS: URINE APPEARANCE Clear; URINE BACTERIA 91.1 uL (0.0-1933); URINE BILIRRUBIN Negative (NEGATIVE); URINE BLOOD Negative; URINE COLOR Yellow; URINE EPITHELIAL CELLS 22.4 uL (0.0-38.8); URINE GLUCOSE Negative (NEGATIVE); URINE KETONE Negative (NEGATIVE); URINE LEUKOCYTE Negative; URINE NITRATE Negative; URINE PROTEIN Negative (NEGATIVE); URINE RBC 11.1 uL (0.0-20.8); URINE UROBILINOGEN 0.2 E.U./dl; URINE WBC 8.3 uL (0.0-23.2)
[2025-08-04 13:24] LABS: URINE CAST 0.00 uL (0.0-1.40)
[2025-08-05 09:12] LABS: PROGESTERONA 0.2 ng/mL (.)
[2025-08-06 15:08] LABS: ESTROGENO 132.0 pg/mL (40-244)
== END 2025-08-04 07:04 | disposition home or self-care (01) ==
LOC: LAB 06:51
PROVIDERS: ATTEND Internal Medicine
DX: N95.2 Postmenopausal atrophic vaginitis (principal); D64.9 Anemia, unspecified; C82.52 Diffuse follicle center lymphoma, intrathoracic lymph nodes; I25.9 Chronic ischemic heart disease, unspecified; E55.9 Vitamin D deficiency, unspecified; I10 Essential (primary) hypertension; R73.9 Hyperglycemia, unspecified; K76.0 Fatty (change of) liver, not elsewhere classified; Z12.10 Encounter for screening for malignant neoplasm of intestinal tract, unspecified; E03.9 Hypothyroidism, unspecified

== ENCOUNTER 2025-08-05 08:11 | Outpatient (CLI) | payer OTHER ==
[2025-08-05 10:31] LABS: ob POSITIVE (NEGATIVE)
== END 2025-08-05 08:13 | disposition home or self-care (01) ==
LOC: LAB 08:11
PROVIDERS: ATTEND Internal Medicine
DX: N95.2 Postmenopausal atrophic vaginitis (principal); D64.9 Anemia, unspecified; C82.52 Diffuse follicle center lymphoma, intrathoracic lymph nodes; I25.9 Chronic ischemic heart disease, unspecified; E55.9 Vitamin D deficiency, unspecified; I10 Essential (primary) hypertension; R73.9 Hyperglycemia, unspecified; K76.0 Fatty (change of) liver, not elsewhere classified; Z12.10 Encounter for screening for malignant neoplasm of intestinal tract, unspecified; E03.9 Hypothyroidism, unspecified